=== PATIENT | female | born 1995 | race American Indian/Alaskan Native ===

== ENCOUNTER 2019-10-04 07:01 | Emergency (ER) | payer SELFPAY ==
[2019-10-04 07:41] VITALS: BP 115/75
--- NOTE | 2019-10-04 09:05 | Emergency Department Report ---
ED Abdominal Pain HPI - General Chief Complaint: Abdominal Pain Stated Complaint: CONSTIPATION/HEADACHE/LOSS OF APPETITE Time Seen by Provider: 10/04/19 09:05 Source: patient Mode of arrival: Ambulatory Limitations: No Limitations - History of Present Illness Initial Comments: 24-year-old female presents to the ER today complaining of upper abdominal pain. Patient states the pain started about a week ago. She states that is not real pain is more for discomfort. She states that has been intermittent and she has been having associated back discomfort with it. She reports also associated nausea and feeling constipated. She states she had a bowel movement last night, but she does admit to straining with bowel movement. She states that stool did not appear to be hard, but it was a small amount of stool that she produced. She states that she took Tylenol last night which seemed to have improved her pain. She has not tried anything [id number] for her constipation. Patient states that she has been having abdominal issues off and on since 2018. Her symptoms today is not as bad as her previous episodes in the past. She states that she has been seen in the ER a few times for abdominal pain and has had workups including CTs done but without any official diagnosis. She denies any abdominal surgeries. She states that she has never been seen by a haircutter since she is been having these abdominal issues. She states that she is concerned she may have irritable bowel syndrome. She states her last menstrual cycle was around September 13. She denies any abnormal vaginal discharge, or vaginal bleeding or UTI symptoms. She denies any fever or chills. Patient states that her pain is better since she has been in ED. MD Complaint: abdominal pain -: week(s) (1) Location: LUQ, RUQ, epigastric - Related Data Previous Rx's Medication Instructions Recorded Last Taken Type Docusate Sodium [Colace] 100 mg PO BID #30 capsule 10/04/19 Unknown Rx Magnesium Citrate [Citrate of 150 ml PO NOW #2 bottle 10/04/19 Unknown Rx Magnesia] Ondansetron [Zofran Odt] 4 mg PO Q8HR PRN #15 tab.rapdis 10/04/19 Unknown Rx Allergies Allergy/AdvReac Type Severity Reaction Status Date / Time No Known Allergies Allergy Unverified 10/04/19 07:27 ED Review of Systems ROS: Stated complaint: CONSTIPATION/HEADACHE/LOSS OF APPETITE Other details as noted in HPI Comment: All other systems reviewed and negative Constitutional: denies: chills, fever Respiratory: denies: cough, shortness of breath, wheezing Cardiovascular: denies: chest pain, palpitations Gastrointestinal: nausea, constipation. denies: abdominal pain, vomiting, diarrhea, hematemesis, melena, hematochezia Genitourinary: denies: urgency, dysuria, discharge Skin: denies: rash, lesions Neurological: denies: headache, weakness, paresthesias ED Past Medical Hx - Past Medical History Previous Medical History?: No - Surgical History Past Surgical History?: No - Social History Smoking Status: Never Smoker Substance Use Type: Marijuana - Medications Home Medications: Home Medications Medication Instructions Recorded Confirmed Last Taken Type Docusate Sodium [Colace] 100 mg PO BID #30 capsule 10/04/19 Unknown Rx Magnesium Citrate [Citrate of 150 ml PO NOW #2 bottle 10/04/19 Unknown Rx Magnesia] Ondansetron [Zofran Odt] 4 mg PO Q8HR PRN #15 tab.rapdis 10/04/19 Unknown Rx ED Physical Exam - General Limitations: No Limitations General appearance: alert, in no apparent distress - Head Head exam: Present: atraumatic, normocephalic, normal inspection - Eye Eye exam: Present: normal appearance, PERRL, EOMI Pupils: Present: normal accommodation - ENT ENT exam: Present: mucous membranes moist - Respiratory Respiratory exam: Absent: respiratory distress - Cardiovascular Cardiovascular Exam: Present: regular rate - GI/Abdominal GI/Abdominal exam: Present: soft, tenderness (Pt grimaces in pain when looking with palpation lower abd but when distracted, she has no abdominal ttp. ). Absent: distended, guarding, rebound, rigid - Neurological Exam Neurological exam: Present: alert, oriented X3, CN II-XII intact - Skin Skin exam: Present: intact ED Course Vital Signs 10/04/19 07:27 Temperature 98 F Pulse Rate 97 H Respiratory 20 Rate Blood Pressure 115/75 O2 Sat by Pulse 99 Oximetry ED Medical Decision Making - Lab Data Result diagrams: 10/04/19 09:53 10/04/19 09:53 - Radiology Data Radiology results: report reviewed - Medical Decision Making 24 yr old presented to ED c/o abd pain, nausea and feeling constipated. Labs/UA/KUB reviewed, mild stool on KUB but otherwise nl, remaining labs unremarkable. Pt currently resting comfortably. She refused the toradol (because she reported she was not in pain but took the zofran. She is not toxic, well appearing, well hydrated and in no acute distress. She has a soft non tender abdomen. Her VS stable Discussed results with patient. She is requesting medication here in ED for constipation but informed her that xray show only mild stool but I will give her prescriptions that she can take at home. Pt reported that she has been having issues with her stomach off and on since 2018 and has never seen a GI specialist. She has had ER w/u including CTs in past wthout definite diagnosis. Given that hx I recommended to pt that she should f/u with GI for further eval and tx of her abd pain. At this time CT abd, admission or emergent GI consult not indicated. She was given GI referral as well as PCP referral. Pt expressed understanding of instructions and agreed with plan. Pt was stable at time of d/c. Critical care attestation.: If time is entered above; I have spent that time in minutes in the direct care of this critically ill patient, excluding procedure time. ED Disposition Clinical Impression: Abdominal pain Disposition: DC-01 TO HOME OR SELFCARE Is pt being admited?: No Does the pt Need Aspirin: No Condition: Stable Instructions: Abdominal Pain (ED) Additional Instructions: I recommend that you take medications as prescribed. I recommend lots of water and high fiber diet which will help with your bowel movements. You can take tylenol or Aleve/Motrin from over the counter to help with pain. I recommend that you follow up with GI specialist for further eval and tx of your abd pain. You can also follow up with PCP given on discharge instructions. Return to ED if worse. Prescriptions: Magnesium Citrate [Citrate of Magnesia] 150 ml PO NOW #2 bottle Docusate Sodium [Colace] 100 mg PO BID #30 capsule Ondansetron [Zofran Odt] 4 mg PO Q8HR PRN #15 tab.rapdis PRN Reason: Nausea Referrals: CHRISTIANO DEVLIN MD [Staff Physician] - 3-5 Days [facility] [Provider Group] - 3-5 Days Time of Disposition: 11:35
[2019-10-04] MEDS ORDERED: SODIUM CHLORIDE 0.9% 1000 ML 1,000 ML IV ONE (09:38)
[2019-10-04] MEDS ORDERED: ONDANSETRON 4 MG/2 ML INJ IV ONE (09:38)
[2019-10-04] MEDS: KETOROLAC 30 MG/1 ML INJ IV ONE ×2 (09:58→10:01)
[2019-10-04 10:29] LABS: Bilirubin,Urine NEG (Negative); Blood,Urine NEG (Negative); Color,Urine Straw (Yellow); Protein,Urine <15 mg/dL mg/dL (Negative); Urobilinogen,Urine < 2.0 mg/dL (<2.0)
[2019-10-04 10:35] LABS: Basophils # (Auto) 0.1 K/mm3 (0.0-0.1); Basophils % (Auto) 0.8 % (0.0-1.8); Eosinophils # (Auto) 0.1 K/mm3 (0.0-0.4); Eosinophils % (Auto) 1.7 % (0.0-4.3); Hematocrit 36.8 % (30.3-42.9); Hemoglobin 12.4 gm/dl (10.1-14.3); Lymphocytes # (Auto) 2.5 K/mm3 (1.2-5.4); Lymphocytes % (Auto) 32.3 % (13.4-35.0); Mean Corpuscular HGB Conc 34 % (30-34); Mean Corpuscular Volume 90 fl (79-97); Monocytes # (Auto) 0.7 K/mm3 (0.0-0.8); Monocytes % (Auto) 8.9 % (0.0-7.3); Platelet Count 198 K/mm3 (140-440); Red Blood Count 4.11 M/mm3 (3.65-5.03); Red Cell Distribution Width 13.7 % (13.2-15.2)
[2019-10-04 10:52] LABS: WBC,Urine < 1.0 /HPF (0.0-6.0)
[2019-10-04 10:54] LABS: Alanine Aminotransferase 11 units/L (7-56); Albumin 4.7 g/dL (3.9-5); Blood Urea Nitrogen 7 mg/dL (7-17); Calcium 9.6 mg/dL (8.4-10.2); Hemolysis Index 5
[2019-10-04 11:13] LABS: BUN/Creatinine Ratio 10
--- NOTE | 2019-10-04 11:27 | XRay Report ---
ABDOMEN 1 VIEW(S) INDICATION / CLINICAL INFORMATION: abd pain/constipation. COMPARISON: None available. FINDINGS: TUBES / LINES: None. BOWEL GAS PATTERN: No significant abnormality. There is a mild degree of stool in the right hemicolon although this appears within normal limits. FREE AIR / EXTRALUMINAL GAS: None seen. ADDITIONAL FINDINGS: No significant additional findings. IMPRESSION: No significant abnormality. Signer Name: Arnav Shelton Jr, MD Signed: 10/04/2019 11:22 AM Workstation Name: [id number]
== END 2019-10-04 12:04 | disposition home or self-care (01) ==
LOC: ED 07:01
DX: R10.9 Unspecified abdominal pain (principal); F12.90 Cannabis use, unspecified, uncomplicated; Z79.899 Other long term (current) drug therapy
CPT/HCPCS: 36415; 74018; 80053; 81001; 83690; 84703; 85025; 96361; 96374; 99284; J1885; J2405; J7030

== ENCOUNTER 2019-10-06 20:52 | Emergency (ER) | payer SELFPAY ==
[2019-10-06 21:22] VITALS: BP 113/68
[2019-10-07] MEDS ORDERED: ONDANSETRON 4 MG ODT TAB PO ONE (00:07)
--- NOTE | 2019-10-07 00:21 | Emergency Department Report ---
HPI - General Chief Complaint: Headache Time Seen by Provider: 10/06/19 23:43 - HPI HPI: This is a 24-year-old female presents to the emergency department with a complaint of anxiety, nausea and insomnia. The patient appears to have some history of anxiety and even was evaluated at an inpatient facility in the past voluntarily. She says at that time she was placed on Remeron to help with the anxiety and her appetite but she felt that she was on too strong of a dose and stopped it herself. The patient says that the anxiety has been progressively worse over the past week. She feels that the root of her anxiety is that she will get some aches and pains and then feel like there is something severely wrong. Patient admits to panic attacks in the past. She was seen here 2 days ago for complaints of some abdominal pain and thinks that she may have IBS. The patient recently moved here from [place] and therefore does not have any primary care physician or psychiatrist here. Patient says that she has not had any sleep over the past 2 nights. She tried some [id number] natural herbs without any relief. She complains of a very mild headache that feels like a tension or squeezing sensation around her head, mostly in the frontal regions and in the neck. She denies any fever, vision change, slurred speech, numbness or paresthesias, or any other neurological deficits. ED Past Medical Hx - Past Medical History Previous Medical History?: No - Surgical History Past Surgical History?: Yes Additional Surgical History: Tonsillectomy. D&C - Social History Smoking Status: Current Every Day Smoker Substance Use Type: Marijuana - Medications Home Medications: Home Medications Medication Instructions Recorded Confirmed Last Taken Type Docusate Sodium [Colace] 100 mg PO BID #30 capsule 10/04/19 Unknown Rx Magnesium Citrate [Citrate of 150 ml PO NOW #2 bottle 10/04/19 Unknown Rx Magnesia] Ondansetron [Zofran Odt] 4 mg PO Q8HR PRN #15 tab.rapdis 10/04/19 Unknown Rx ED Review of Systems ROS: Stated complaint: LONGO,DIZZY,MALIKA,NAUSEA Other details as noted in HPI Comment: All other systems reviewed and negative Constitutional: denies: see HPI, fever Eyes: denies: eye pain, vision change ENT: denies: ear pain, throat pain Respiratory: denies: cough, shortness of breath Cardiovascular: denies: chest pain, palpitations Gastrointestinal: denies: abdominal pain, vomiting Musculoskeletal: denies: back pain, arthralgia Neurological: headache. denies: weakness, numbness, paresthesias Psychiatric: anxiety. denies: auditory hallucinations, visual hallucinations, homicidal thoughts, suicidal thoughts Physical Exam - Physical Exam Vital Signs: Vital Signs 10/06/19 21:07 Temperature 97.9 F Pulse Rate 103 H Respiratory 18 Rate Blood Pressure 113/68 O2 Sat by Pulse 99 Oximetry Physical Exam: GENERAL: The patient is well-developed well-nourished. HENT: Normocephalic. Atraumatic. Patient has moist mucous membranes. EYES: Extraocular motions are intact. No nystagmus. NECK: Supple. Trachea is midline. CHEST/LUNGS: Clear to auscultation. There is no respiratory distress noted. HEART/CARDIOVASCULAR: Regular. There is no tachycardia. There is no murmur. ABDOMEN: Abdomen is soft, nontender. Patient has normal bowel sounds. SKIN: Skin is warm and dry. NEURO: The patient is awake, alert, and oriented. The patient is cooperative. The patient has no focal neurologic deficits. Normal speech. Cranial nerves II through XII grossly intact. No pronator drift or dysmetria. MUSCULOSKELETAL: There is no tenderness or deformity. There is no limitation ra nge of motion. There is no evidence of acute injury. PSYCH: Patient appears slightly anxious. ED Course Vital Signs 10/06/19 21:07 Temperature 97.9 F Pulse Rate 103 H Respiratory 18 Rate Blood Pressure 113/68 O2 Sat by Pulse 99 Oximetry ED Medical Decision Making - Medical Decision Making This patient presents with a complaint of anxiety, insomnia, and some nausea without vomiting. On examination the patient does display some mild anxiety but does not express any suicidal or homicidal ideations, and does not display any signs of acute psychosis. The root of the patient's anxiety appears to be related to concerns about her overall health that borders on hypochondriasis. The patient was here 2 days ago for complaints of some abdominal discomfort and had normal labs including CBC, metabolic panel with LFTs, and urinalysis and the patient was not . The patient says that she is very tired but has been unable to sleep over the past 1-2 nights due to her anxiety. It is also possible that the insomnia is worsening the anxiety. Patient's vital signs been reassuring throughout her ED course. She was given a dose of Zofran for her complaint of nausea. Patient will try a dose of Benadryl to see if she can get some rest this evening. She has been given a referral for the [facility], which takes walk-ins, to follow-up regarding anxiety. She is also been given a referral for primary care. She will return to the ER with any worsening of her symptoms or with any acute distress. Critical Care Time: No Critical care attestation.: If time is entered above; I have spent that time in minutes in the direct care of this critically ill patient, excluding procedure time. ED Disposition Clinical Impression: Anxiety, Nausea Insomnia Qualifiers: Insomnia type: unspecified Qualified Code(s): G47.00 - Insomnia, unspecified Disposition: TO HOME OR SELFCARE Is pt being admited?: No Condition: Stable Instructions: Acute Nausea and Vomiting (ED), Insomnia (ED), Anxiety (ED) Additional Instructions: Please follow-up with a primary care physician in the next few days. I am also giving you a referral for the [facility] to follow-up regarding your anxiety. Please try to avoid caffeine. If you are a cigarette smoker, avoid tobacco/nicotine use. Try to practice good sleep habits. Return to the emergency department with any worsening of your symptoms or with any acute distress. Referrals: PRIMARY CARE, [Primary Care Provider] - 2-3 Days [facility] [Provider Group] - 2-3 Days [facility] [Outside] - [facility] Time of Disposition: 00:44
[2019-10-07] MEDS ORDERED: diphenhydrAMINE 25 MG CAP PO ONE (00:44)
== END 2019-10-07 01:00 | disposition home or self-care (01) ==
LOC: ED 20:52
DX: F41.9 Anxiety disorder, unspecified (principal); R11.0 Nausea; G47.00 Insomnia, unspecified; F17.200 Nicotine dependence, unspecified, uncomplicated; F12.10 Cannabis abuse, uncomplicated
CPT/HCPCS: 93005; 99282; Q0162

== ENCOUNTER 2019-10-10 10:33 | Emergency (ER) | payer SELFPAY ==
[2019-10-10 10:49] VITALS: BP 101/65
--- NOTE | 2019-10-10 12:34 | Emergency Department Report ---
ED N/V/D HPI - General Chief complaint: Nausea/Vomiting/Diarrhea Stated complaint: LIGHTHEADED/N/NIGHT SWEATS/ANXIETY Time Seen by Provider: 10/10/19 11:34 Source: patient Mode of arrival: Ambulatory Limitations: No Limitations - History of Present Illness Initial comments: This is a 24-year-old female nontoxic well in apperance with no acute signs of d istress presents to the ED with complaints of intermittent nausea and constipation x several months. Patient was seen in the ED several times in the past 2 weeks and was told to f/o with gastro but has not yet. Patient stated that her insurance just kicked in. Patient otherwise in the ED right now denies any symptoms. Denies any abdominal pain, nausea, vomiting, chest pain, sob, fever, chills, headache, or stiff neck. Patient denies any allergies or PMH. MD complaint: nausea, other (intermittent constipation) Associated Abdominal Pain: No Radiation: none Pain Scale: 0 Improves with: none Worsens with: none Associated Symptoms: denies other symptoms. denies: myalgias, chest pain, cough, diaphoresis, headaches, loss of appetite, malaise, nausea/vomiting, rash, dysuria, shortness of breath, syncope, weakness - Related Data Previous Rx's Medication Instructions Recorded Last Taken Type Docusate Sodium [Colace] 100 mg PO BID #30 capsule 10/04/19 Unknown Rx Magnesium Citrate [Citrate of 150 ml PO NOW #2 bottle 10/04/19 Unknown Rx Magnesia] Ondansetron [Zofran Odt] 4 mg PO Q8HR PRN #15 tab.rapdis 10/04/19 Unknown Rx Allergies Allergy/AdvReac Type Severity Reaction Status Date / Time No Known Allergies Allergy Unverified 10/04/19 07:27 ED Review of Systems ROS: Stated complaint: LIGHTHEADED/N/NIGHT SWEATS/ANXIETY Other details as noted in HPI Constitutional: denies: chills, fever Eyes: denies: eye pain, eye discharge, vision change ENT: denies: ear pain, throat pain Respiratory: denies: cough, shortness of breath, wheezing Cardiovascular: denies: chest pain, palpitations Endocrine: no symptoms reported Gastrointestinal: denies: abdominal pain, nausea, diarrhea Genitourinary: denies: urgency, dysuria, discharge Musculoskeletal: denies: back pain, joint swelling, arthralgia Skin: denies: rash, lesions Neurological: denies: headache, weakness, paresthesias Psychiatric: denies: anxiety, depression Hematological/Lymphatic: denies: easy bleeding, easy bruising ED Past Medical Hx - Past Medical History Previous Medical History?: No - Surgical History Past Surgical History?: Yes Additional Surgical History: Tonsillectomy. D&C - Social History Smoking Status: Never Smoker Substance Use Type: None - Medications Home Medications: Home Medications Medication Instructions Recorded Confirmed Last Taken Type Docusate Sodium [Colace] 100 mg PO BID #30 capsule 10/04/19 Unknown Rx Magnesium Citrate [Citrate of 150 ml PO NOW #2 bottle 10/04/19 Unknown Rx Magnesia] Ondansetron [Zofran Odt] 4 mg PO Q8HR PRN #15 tab.rapdis 10/04/19 Unknown Rx ED Physical Exam - General Limitations: No Limitations General appearance: alert, in no apparent distress - Head Head exam: Present: atraumatic, normocephalic - Eye Eye exam: Present: normal appearance - Neck Neck exam: Present: normal inspection, full ROM. Absent: tenderness, meningismus, lymphadenopathy - Respiratory Respiratory exam: Present: normal lung sounds bilaterally. Absent: respiratory distress, wheezes, rales, rhonchi, stridor, chest wall tenderness, accessory muscle use, decreased breath sounds, prolonged expiratory - Cardiovascular Cardiovascular Exam: Present: regular rate, normal rhythm, normal heart sounds. Absent: bradycardia, tachycardia, irregular rhythm, systolic murmur, diastolic murmur, rubs, gallop - GI/Abdominal GI/Abdominal exam: Present: soft, normal bowel sounds. Absent: distended, tenderness, guarding, rebound, rigid, diminished bowel sounds - Extremities Exam Extremities exam: Present: normal inspection, full ROM - Back Exam Back exam: Present: normal inspection, full ROM. Absent: tenderness, CVA tenderness (R), CVA tenderness (L), muscle spasm, paraspinal tenderness, vertebral tenderness, rash noted - Neurological Exam Neurological exam: Present: alert, oriented X3, normal gait - Psychiatric Psychiatric exam: Present: normal affect, normal mood - Skin Skin exam: Present: warm, dry, intact, normal color. Absent: rash ED Course Vital Signs 10/10/19 10:47 Temperature 98.6 F Pulse Rate 83 Respiratory 16 Rate Blood Pressure 101/65 O2 Sat by Pulse 99 Oximetry - Reevaluation(s) Reevaluation #1: 10/10/19 12:32 Patient is speaking in full sentences with no signs of distress noted. ED Medical Decision Making - Medical Decision Making 24-year-old female that presents with chornic nausea. Patient is stanble and was examined by me., Vital signs are stable. PAtient does not present with a medical emergency in the ED today. Patient was instructed to Follow-up with a primary care and progress worker doctor in 3-5 days or if symptoms worsen and continue return to emergency room as soon as possible. At time of discharge, the patient does not seem toxic or ill in appearance. No acute signs of distress noted. Patient agrees to discharge treatment plan of care. No further questions noted by the patient. Critical care attestation.: If time is entered above; I have spent that time in minutes in the direct care of this critically ill patient, excluding procedure time. ED Disposition Clinical Impression: Chronic nausea Disposition: Z-07 MED SCREENING EXAM-LEFT Is pt being admited?: No Does the pt Need Aspirin: No Condition: Stable Additional Instructions: Follow-up with a primary care and progress worker doctor in 3-5 days or if symptoms worsen and continue return to emergency room as soon as possible. Referrals: ISADORA MCKEON MD [Referring] - 3-5 Days CHRISTIANO DEVLIN MD [Staff Physician] - 3-5 Days [facility] [Provider Group] - 3-5 Days
== END 2019-10-10 15:00 | disposition left against medical advice (07) ==
LOC: ED 10:33
DX: F41.9 Anxiety disorder, unspecified (principal); Z53.21 Procedure and treatment not carried out due to patient leaving prior to being seen by health care provider